=== PATIENT | female | born 1980 | race African-American/Black ===

== ENCOUNTER 2021-08-14 10:26 | Emergency (ER) | payer OTHER ==
[~2021-08-14] VITALS: Ht 154.9 cm; Wt 59.0 kg
[~2021-08-14 10:26] MED LIST: BACTRIM DS TAB1 EACH; BENTYL 10 MG CA10 M1 PO; CLEOCIN HCL150 MG PO; COLACE100 MG PO; HYDROCODONE-AP1 EAC6 PO; IBUPROFEN 600600 M1 PO; LIDODERM 5%1 PATC1 TRANSDERM; MEDROLDOSEPACK PO; NAPROSYN500 MG PO; NOHOMEMEDICATIONS; NORCO 5-325 TA1 EAC1 PO; NORCO 5-325 TA1 EACH PO; PENICILLIN V P500 MG PO; PENICILLIN VK500 M1 PO; PROBIOTIC1 EAC4 PO; TRAMADOL 50 MG50 MG PO; TRAZODONE 150150 M1 PO; VISTARIL 25 MG25 M1 PO; ZOFRAN ODT4 MG PO
[2021-08-14 11:23] VITALS: BP 116/55
== END 2021-08-14 11:24 | disposition left against medical advice (07) ==
LOC: M.ERS 10:26
DX: R10.32 Left lower quadrant pain (principal); Z53.21 Procedure and treatment not carried out due to patient leaving prior to being seen by health care provider